=== PATIENT | female | born 1975 | race Caucasian/White ===

== ENCOUNTER → 2016-05-12 | Outpatient (CLI) | payer BC ==
[~2016-05-12] MED LIST: DOCUSATE SODIU100 MG PO; KLONOPIN2 MG PO; NO MEDICATIONS; SEROQUEL PO; TYLENOL #3 PO
--- NOTE | ~2016-05-12 | US6 ---
[facility] A Service of [facility] RADIOLOGY TEXT RESULTS PATIENT: NIKO TAYLOR LOCATION: [facility] : 79 UNIT #: [id number] AGE: [address]: Medhat Cooper MD SEX: F ORDER DR: [id number] [facility] [address] [place], [place] [address] [id number] O MR#: [id number] Acc #: [id number] NAME: NIKO TAYLOR : 1975 SEX: F STUDY DATE/TIME: 05/12/2016 11:20 UNIT: [facility] ROOM: STUDY DESCRIPTION: US Abdominal Limited Attending Physician: Medhat Cooper M.D. Referring Physician: Medhat Cooper M.D. Ordering Physician: Medhat Cooper M.D. Primary Care Physician: Katie Ulloa M.D. MEDICAL IMAGING REPORT This report is preliminary unless electronic signature is present EXAM Right upper quadrant ultrasound. DATE OF EXAM 05/12/2016 HISTORY Right upper quadrant abdominal pain radiating to midline and to back for 4 days with constipation for 2-1/2 weeks. Nausea and vomiting. FINDINGS Ultrasound examination of the gallbladder is negative. There is no cholelithiasis, gallbladder wall thickening, or bile duct dilatation. The visualized liver is negative. IMPRESSION Negative gallbladder ultrasound examination. Dictated by... Hernan Simon M.D. THIS IS AN ELECTRONICALLY VERIFIED REPORT Hernan Simon M.D. at 05/15/2016 8:14 AM LALY/reinaldo TD: 05/12/2016 17:37 JOB #: [id number] MEDICAL IMAGING REPORT COPY
== END | disposition home or self-care (01) ==
LOC: CWCC 11:12
DX: R10.9 Unspecified abdominal pain (principal)
CPT/HCPCS: 76705